=== PATIENT | female | born 1985 | race Caucasian/White ===

== ENCOUNTER 2017-12-24 06:35 | Day surgery (SDC) | payer OTHER ==
[2017-12-24] MEDS ORDERED: CEFAZOLIN 2 GM/50 ML (PMX) 50 ML IVPB (07:00)
[2017-12-24] MEDS ORDERED: LACTATED RINGER'S 1,000 ML IV* (07:00)
[2017-12-24] MEDS ORDERED: ROCURONIUM 50 MG INJ ×2 (07:58→09:05)
[2017-12-24] MEDS ORDERED: ONDANSETRON 4 MG INJ ×2 (07:58→12:05)
[2017-12-24] MEDS ORDERED: MIDAZOLAM 1 MG/ML 2 ML INJ (07:58)
[2017-12-24] MEDS ORDERED: PROPOFOL 20 ML (07:58)
[2017-12-24] MEDS ORDERED: GLYCOPYRROLATE 0.4 MG INJ ×2 (07:58→10:58)
[2017-12-24] MEDS ORDERED: KETOROLAC 30 MG INJ (07:59)
[2017-12-24] MEDS ORDERED: ROPIVACAINE 0.5 % 30 ML VIAL (07:59)
[2017-12-24] MEDS ORDERED: METOCLOPRAMIDE 10 MG INJ (08:00)
[2017-12-24] MEDS ORDERED: FENTAnyl 50 MCG/ML VIAL (08:24)
[2017-12-24] MEDS ORDERED: CEFAZOLIN 1 GM INJ (08:46)
[2017-12-24] MEDS ORDERED: ACETAMINOPHEN 1000MG/100ML IV 100 ML (09:05)
[2017-12-24] MEDS ORDERED: HYDROmorphONE 2 MG/ML SYG (09:22)
[2017-12-24] MEDS: METHYLENE BLUE 1% 10 ML INJ (10:00)
[2017-12-24] MEDS ORDERED: NEOSTIGMINE 3 MG/3 ML SYRINGE (10:58)
[2017-12-24] MEDS: BUPIVACAINE 0.5%/EPI (SDV) 30 ML INJ (11:20)
[2017-12-24] MEDS ORDERED: HYDROmorphONE 1 MG/5 ML IV SYRINGE IV ×6 (11:38→13:00)
[2017-12-24] MEDS: HYDROmorphONE 1 MG/5 ML IV SYRINGE IV (12:17)
[2017-12-24] MEDS: ONDANSETRON 4 MG INJ IV (12:18)
[2017-12-24] MEDS ORDERED: ONDANSETRON 4 MG INJ IV (13:00)
[2017-12-24] MEDS: METOCLOPRAMIDE 10 MG INJ IV (14:23)
== END 2017-12-24 15:38 | disposition home or self-care (01) ==
LOC: SDS 06:35
DX: N80.1 Endometriosis of ovary (principal); D25.9 Leiomyoma of uterus, unspecified; E66.9 Obesity, unspecified; Z68.30 Body mass index [BMI] 30.0-30.9, adult
CPT/HCPCS: 58662; 84703; 88305